=== PATIENT | male | born 1970 ===

== ENCOUNTER 2021-09-15 04:00 | Emergency (ER) | payer SELFPAY ==
[2021-09-15 04:17] VITALS: BP 153/96; PULSE 89; RESP 18; TEMP 97.9
--- NOTE | 2021-09-15 05:17 | ED ---
Recheck HPI - General Chief Complaint: Recheck/Abnormal Lab/Rx Stated Complaint: Covid test Time Seen by Provider: 09/15/21 05:16 Source: patient, RN notes reviewed, old records reviewed Mode of arrival: ambulatory Limitations: no limitations - History of Present Illness Initial Comments: This is a 51-year-old male to the emergency department for evaluation. Patient presents today for need for coronavirus test. Patient has need for coronavirus test on a candidate. No complaints no medical history takes no medications MD Complaint: medication refill request (Coronavirus testing) -: minutes(s) Returns Today for: request for prescription Symptoms Since Prior Visit: no new symptoms Context: planned re-check Associated Symptoms: none Treatments Prior to Arrival: other (none) - Related Data Allergies Allergy/AdvReac Type Severity Reaction Status Date / Time No Known Allergies Allergy Verified 09/15/21 04:17 Review of Systems ROS Statement: Those systems with pertinent positive or pertinent negative responses have been documented in the HPI. ROS Other: All systems not noted in ROS Statement are negative. Past Medical History Past Medical History: No Reported History History of Any Multi-Drug Resistant Organisms: None Reported Past Surgical History: No Surgical Hx Reported Past Psychological History: No Psychological Hx Reported Smoking Status: Never smoker Past Alcohol Use History: None Reported Past Drug Use History: None Reported General Exam Limitations: no limitations General appearance: alert, in no apparent distress Head exam: Present: atraumatic, normocephalic, normal inspection Eye exam: Present: normal appearance, PERRL, EOMI. Absent: scleral icterus, conjunctival injection, periorbital swelling ENT exam: Present: normal exam, mucous membranes moist Neck exam: Present: normal inspection. Absent: tenderness, meningismus, lymphadenopathy Respiratory exam: Present: normal lung sounds bilaterally. Absent: respiratory distress, wheezes, rales, rhonchi, stridor Cardiovascular Exam: Present: regular rate, normal rhythm, normal heart sounds. Absent: systolic murmur, diastolic murmur, rubs, gallop, clicks GI/Abdominal exam: Present: soft, normal bowel sounds. Absent: distended, tenderness, guarding, rebound, rigid Extremities exam: Present: normal inspection, full ROM, normal capillary refill. Absent: tenderness, pedal edema, joint swelling, calf tenderness Back exam: Present: normal inspection Neurological exam: Present: alert, oriented X3, CN II-XII intact Psychiatric exam: Present: normal affect, normal mood Skin exam: Present: warm, dry, intact, normal color. Absent: rash Course Vital Signs 09/15/21 04:15 Temperature 97.9 F Pulse Rate 89 Respiratory 18 Rate Blood Pressure 153/96 O2 Sat by Pulse 98 Oximetry - Reevaluation(s) Reevaluation #1: 09/15/21 Medical record is reviewed Patient symptoms are improved here in the ER Medical Decision Making - Medical Decision Making 48 female to the emergency department for evaluation patient presents today for evaluation regards to needing coronavirus test. Testing negative here in the ER patient can be discharged home - Lab Data Lab Results 09/15/21 Range/Units 04:17 Coronavirus (PCR) Not Detected (Not Detectd) Disposition Clinical Impression: Normal exam Disposition: HOME SELF-CARE Condition: Good Instructions (If sedation given, give patient instructions): Normal Exam (ED) Is patient prescribed a controlled substance at d/c from ED?: No Referrals: None,Stated [Primary Care Provider] - 1-2 days
== END 2021-09-15 06:13 | disposition home or self-care (01) ==
LOC: EC 04:00
DX: Z20.822 Contact with and (suspected) exposure to COVID-19 (principal)
CPT/HCPCS: 87635; 99283